=== PATIENT | male | born 1985 | race Caucasian/White ===

== ENCOUNTER 2017-08-21 06:54 | Emergency (ER) | payer MEDICAID, OTHER ==
[2017-08-21] MEDS ORDERED: Diltiazem 25 MG/5 ML SDV IVPUSH ONE (07:29)
[2017-08-21] MEDS ORDERED: Diltiazem 100 MG in Sodium Chloride 0.9% 100 ML IV SCH (07:30)
[2017-08-21] MEDS ORDERED: Sodium Chloride 0.9% 1,000 ML IV SCH (08:15)
[2017-08-21 08:34] VITALS: BP 118/56
--- NOTE | 2017-08-21 08:47 | EDM.PDOC ---
ED HPI GENERAL MEDICAL PROBLEM - General Chief Complaint: General Stated Complaint: a-FIB Time Seen by Provider: 08/21/17 07:10 Source of Information: Reports: Patient, Family History Limitations: Reports: No Limitations - History of Present Illness INITIAL COMMENTS - FREE TEXT/NARRATIVE: Patient is a 32 year old man who awoke this morning with palpitations and light headedness. He has had bouts of Atrial Fibrillation two other times and he knew that was what was happenning so he came to the ED for evaluation and treatment. He was converted once in [place] and he converted with the Diltiazem drip last time in [place] but he would like to see cardiology and get more evaluation and treatment done. He has no pain or other complaints. Onset: Today, Sudden Onset Date: 08/21/17 Onset Time: 06:00 Duration: Hour(s): (1) Location: Reports: Chest Quality: Reports: Same as Previous Episode, Other (Palpitations and lightheadedness.) Severity: Moderate Improves with: Reports: None Worsens with: Reports: None Context: Reports: Other (History of Paroxysmal Atrial Fibrillation x 2 before.) Associated Symptoms: Reports: Other (Lightheaded.) - Related Data Allergies Allergy/AdvReac Type Severity Reaction Status Date / Time No Known Allergies Allergy Verified 08/21/17 07:53 Home Meds: Home Meds NK [No Known Home Meds] 08/21/17 [History] ED ROS GENERAL - Review of Systems Review Of Systems: See Below Constitutional: Reports: Other (Lightheaded.) HEENT: Reports: No Symptoms Respiratory: Reports: No Symptoms Cardiovascular: Reports: Palpitations Endocrine: Reports: No Symptoms GI/Abdominal: Reports: No Symptoms : Reports: No Symptoms Musculoskeletal: Reports: No Symptoms Skin: Reports: No Symptoms Neurological: Reports: No Symptoms Psychiatric: Reports: No Symptoms Hematologic/Lymphatic: Reports: No Symptoms ED EXAM, GENERAL - Physical Exam Exam: See Below Exam Limited By: No Limitations General Appearance: Alert, WD/WN, No Apparent Distress Eye Exam: Bilateral Eye: EOMI, Normal Fundi, Normal Inspection, PERRL Ears: Normal External Exam, Normal Canal, Hearing Grossly Normal, Normal TMs Ear Exam: Bilateral Ear: Auricle Normal, Canal Normal, TM normal Nose: Normal Inspection, Normal Mucosa, No Blood Throat/Mouth: Normal Inspection, Normal Lips, Normal Teeth, Normal Gums, Normal Oropharynx, Normal Voice, No Airway Compromise Head: Atraumatic, Normocephalic Neck: Normal Inspection, Supple, Non-Tender, Full Range of Motion Respiratory/Chest: No Respiratory Distress, Lungs Clear, Normal Breath Sounds, No Accessory Muscle Use, Chest Non-Tender Cardiovascular: Normal Peripheral Pulses, Regular Rate, Rhythm, No Edema, No Gallop, No JVD, No Murmur, No Rub Peripheral Pulses: 1+: Posterior Tibial (L), Posterior Tibial (R), Dorsalis Pedis (L), Dorsalis Pedis (R) GI/Abdominal: Normal Bowel Sounds, Soft, Non-Tender, No Organomegaly, No Distention, No Abnormal Bruit, No Mass Extremities: Normal Inspection, Normal Range of Motion, Non-Tender, Normal Capillary Refill, No Pedal Edema Neurological: Alert, Oriented, CN II-XII Intact, Normal Cognition, Normal Gait, Normal Reflexes, No Motor/Sensory Deficits Psychiatric: Normal Affect, Normal Mood Skin Exam: Warm, Dry, Intact, Normal Color, No Rash Lymphatic: No Adenopathy EKG INTERPRETATION EKG Date: 08/21/17 Rhythm: A-Fib [place]: Normal P-Wave: Absent QRS: Normal ST-T: Normal QT: Normal Comparison: NA - No Prior EKG Course - Vital Signs Text/Narrative:: Uneventful ED course. He was put on a Diltiazem drip after receiving a 25 mg bolus and his rate decreased along with the feeling of lightheadedness. He still felt his palpitations. He will be transferred to [facility] for further evaluation and treatment. Last Recorded V/S: Last Vital Signs Temp 36.3 C 08/21/17 07:44 Pulse 100 08/21/17 08:08 Resp 20 08/21/17 07:50 BP 118/56 L 08/21/17 08:34 Pulse Ox 100 08/21/17 08:08 - Orders/Labs/Meds Orders: Active Orders 24 hr Category Date Time Status EKG Documentation Completion [RC] ASDIRECTED Care 08/21/17 07:27 Active Nothing Per Oral Diet [DIET] Diet 08/21/17 Breakfast Ordered CXR [Chest 1V Frontal] [CR] Stat Exams 08/21/17 07:23 Taken Diltiazem [Cardizem] 100 mg Med 08/21/17 07:30 Active Sodium Chloride 0.9% [Normal Saline] 100 ml IV TITRATE Sodium Chloride 0.9% [Normal Saline] 1,000 ml Med 08/21/17 08:15 Active IV ASDIRECTED Medication Orders Diltiazem HCl 100 mg/ Sodium (Chloride) 100 mls @ 5 mls/hr IV TITRATE ERIC; 5 MG /HR PRN Reason: Protocol Last Admin: 08/21/17 07:35 Dose: 5 mg/hr, 5 mls/hr Sodium Chloride (Normal Saline) 1,000 mls @ 0 mls/hr IV ASDIRECTED ERIC PRN Reason: KVO Last Admin: 08/21/17 07:25 Dose: 30 mls/hr Labs: Laboratory Tests 08/21/17 08/21/17 Range/Units 07:25 07:25 WBC 5.5 (4.0-11.0) K/uL RBC 5.39 (4.50-6.50) M/uL Hgb 15.7 (13.0-18.0) g/dL Hct 45.8 (40.0-54.0) % MCV 85 (76-96) fL MCH 29.1 (27.0-32.0) pg MCHC 34.3 (31.0-35.0) g/dL RDW 13.0 (11.0-16.0) % Plt Count 182 (150-400) K/uL MPV 9.7 (6.0-10.0) fL Neut % (Auto) 51.6 (45.0-70.0) % Lymph % (Auto) 37.6 (20.0-40.0) % Hill % (Auto) 7.3 (3.0-10.0) % Eos % (Auto) 2.9 (1.0-5.0) % Baso % (Auto) 0.6 H (0.0-0.5) % Neut # (Auto) 2.81 (2.00-7.50) K/uL Lymph # (Auto) 2.05 (1.50-4.00) K/uL Hill # (Auto) 0.40 (0.20-0.80) K/uL Eos # (Auto) 0.16 (0.04-0.40) K/uL Baso # (Auto) 0.03 (0.02-0.10) K/uL Sodium 138 (136-145) mmol/L Potassium 4.7 (3.5-5.1) mmol/L Chloride 104 (98-107) mmol/L Carbon Dioxide 27.9 (21.0-32.0) mmol/L Anion Gap 10.8 (5.0-15.0) mmol/L BUN 9 (8-26) mg/dL Creatinine 1.33 H (0.70-1.30) mg/dL Est Cr Clr Drug Dosing TNP Estimated GFR (MDRD) > 60 (>60) MLS/MIN BUN/Creatinine Ratio 6.8 (6-25) Glucose 108 H (74-100) mg/dL Calcium 9.1 (8.5-10.1) mg/dL Total Bilirubin 0.5 (0.0-1.0) mg/dL AST 18 (15-37) U/L ALT 30 (12-78) U/L Alkaline Phosphatase 74 (46-116) U/L Troponin I < 0.017 (0.000-0.060) ng/mL Total Protein 6.9 (6.4-8.2) g/dL Albumin 3.8 (3.4-5.0) g/dL Globulin 3.1 (2.2-4.2) g/dL Albumin/Globulin Ratio 1.2 (0.8-2.0) Meds: Medications Generic Name Dose Route Start Last Admin Trade Name Freq PRN Reason Stop Dose Admin Diltiazem HCl 100 mg/ Sodium 100 mls @ 5 mls/hr 08/21/17 07:30 08/21/17 07:35 Chloride IV 5 mg/hr TITRATE ERIC 5 mls/hr Protocol Administration 5 MG/HR Sodium Chloride 1,000 mls @ 0 mls/hr 08/21/17 08:15 08/21/17 07:25 Normal Saline IV 30 mls/hr ASDIRECTED ERIC Administration KVO Discontinued Medications Generic Name Dose Route Start Last Admin Trade Name Freq PRN Reason Stop Dose Admin Diltiazem HCl 25 mg 08/21/17 07:29 08/21/17 07:29 Diltiazem IVPUSH 08/21/17 07:30 25 mg ONETIME ONE Administration Departure - Departure Time of Disposition: 08:52 Disposition: DC/Tfer to Acute Hospital 02 Condition: Good Clinical Impression: Atrial fibrillation - Discharge Information Referrals: PCP,None [Primary Care Provider] - - My Orders Last 24 Hours: My Active Orders 08/21/17 07:23 CXR [Chest 1V Frontal] [CR] Stat 08/21/17 07:27 EKG Documentation Completion [RC] ASDIRECTED 08/21/17 07:30 Diltiazem [Cardizem] 100 mg Sodium Chloride 0.9% [Normal Saline] 100 ml IV TITRATE 08/21/17 08:15 Sodium Chloride 0.9% [Normal Saline] 1,000 ml IV ASDIRECTED 08/21/17 Breakfast Nothing Per Oral Diet [DIET] - Assessment/Plan Last 24 Hours: My Active Orders 08/21/17 07:23 CXR [Chest 1V Frontal] [CR] Stat 08/21/17 07:27 EKG Documentation Completion [RC] ASDIRECTED 08/21/17 07:30 Diltiazem [Cardizem] 100 mg Sodium Chloride 0.9% [Normal Saline] 100 ml IV TITRATE 08/21/17 08:15 Sodium Chloride 0.9% [Normal Saline] 1,000 ml IV ASDIRECTED 08/21/17 Breakfast Nothing Per Oral Diet [DIET]
--- NOTE | 2017-08-21 10:44 | CR ---
DATE OF SERVICE: 08/21/17 CLINICAL DATA: Atrial Fib AP PORTABLE CHEST Comparison is made to a prior exam dated 01/29/11. The heart size is normal. The lungs are clear. No pneumothorax. No pleural effusions. No areas of consolidation. IMPRESSION: No evidence of acute intrathoracic disease. [id number] MTDD
== END 2017-08-21 09:05 ==
LOC: LB.ED 06:54
DX: I48.91 Unspecified atrial fibrillation (principal)
CPT/HCPCS: 36415; 71010; 80053; 84484; 85025; 93005; 96361; 96374; 99285; A0425; A0429; J3490; J7030; J7040; 96365; 96366